=== PATIENT | female | born 1945 | race Caucasian/White ===

== ENCOUNTER → 2022-10-25 | Outpatient (CLI) | payer MEDICARE | LOC: CARDFS 12:42 | PROVIDERS: ATTEND Internal Medicine Cardiovascular Disease | DX: I10 Essential (primary) hypertension (principal); I25.10 Atherosclerotic heart disease of native coronary artery without angina pectoris; I51.7 Cardiomegaly | CPT/HCPCS: 93306 ==

== ENCOUNTER → 2022-11-16 | Outpatient (CLI) | payer MEDICARE ==
[~2022-11-16] VITALS: Ht 160 cm; Wt 86.0 kg
[~2022-11-16] MED LIST: CATHETER FLUSH 10 ML SYR IVP PRN
[2022-11-16 12:54] VITALS: BP 177/89
--- NOTE | 2022-11-16 17:28 | Cardiology Stress Test Report ---
Stress Test Report Date of Procedure/Referring: Date of Procedure: Nov 16, 2022 PCP Claudette Salmon MD Admitting Physician Admitting Physician: Attending Physician: Connie Cat MD Indications: HTN Baseline Heart Rate: 82 Baseline Blood Pressure: Blood Pressure Systolic: 177 Blood Pressure Diastolic: 89 Baseline Vitals Vital Signs Date Time Temp Pulse Resp B/P (MAP) Pulse Ox O2 Delivery O2 Flow Rate FiO2 11/16/22 12:54 75 20 177/89 (118) 94 Room Air Baseline EKG: Baseline EKG: NSR Summary After explaining the procedure to the patient, she signed a consent and then brought to the stress nuclear laboratory. Patient received 0.4 mg Lexiscan for stress test, ECG, heart rate and blood pressure were monitored continuously. Resting and stress dose of radio tracer were injected, imaging was acquired and reviewed in short axis, horizontal long axis and vertical long axis views. TID: 0.99 SSS: 5 SDS: 4 EF: 61 Patient was unable to exercise beyond 2 minutes on Aleksandr protocol, test was terminated and converted to Lexiscan Myoview stress test Patient tolerated Lexiscan well Breast attenuation with mild decrease uptake at the basal to mid anterolateral wall with mild reversibility most probably due to breast attenuation, no significant ischemia was noted Normal left ventricular size, EF 61% CONNIE CAT MD Nov 16, 2022 17:28
== END ==
LOC: CARD 11:18
PROVIDERS: ATTEND Internal Medicine Cardiovascular Disease
DX: I10 Essential (primary) hypertension (principal); I25.10 Atherosclerotic heart disease of native coronary artery without angina pectoris
CPT/HCPCS: 78452; 93017; A9502